=== PATIENT | male | born 2000 | race Caucasian/White ===

== ENCOUNTER 2019-02-16 00:21 | Emergency (ER) | payer SELFPAY | END 2019-02-16 02:06 | disposition home or self-care (01) | LOC: FTE 00:21 | DX: R11.2 Nausea with vomiting, unspecified (principal); R19.7 Diarrhea, unspecified | CPT/HCPCS: 99283 ==

== ENCOUNTER 2019-03-18 01:54 | Emergency (ER) | payer SELFPAY ==
[2019-03-18] MEDS: DEXAMETHASONE 10 MG/ML 1 ML INJ IM (02:57)
== END 2019-03-18 03:24 | disposition home or self-care (01) ==
LOC: FTE 01:54
DX: R21 Rash and other nonspecific skin eruption (principal)
CPT/HCPCS: 96372; 99284-25